=== PATIENT | female | born 1970 | race Caucasian/White ===

== ENCOUNTER 2016-11-03 15:11 | Emergency (ER) | payer OTHER ==
--- NOTE | 2016-11-03 16:28 | ER NURSING DOCUMENTATION ---
Nurse's Notes [facility] Name:Ciarra Gresham Age:46 yrs Sex:Female :1970 Arrival Date:11/03/2016 Time:15:11 Bed1 Private MD:Soledad Fatima Diagnosis:Viral Illness Presentation: 11/03 15:32 Presenting complaint: Patient states: cold symptoms since Wednesday 11/01. Chest sj congestion, chills, aches in all joints, headache, scalp hurts, dry non-productive cough, denies fever. Taking tylenol without relief. Concerned about flu. Transition of care: Home. 15:32 Method Of Arrival: Private Vehicle 15:32 Acuity: CIERA 3 sj Triage Assessment: 15:41 General: Appears in no apparent distress, Behavior is cooperative, pleasant. Pain: sj Complains of pain in all joints. Cardiovascular: Heart tones S1 S2 present. Respiratory: Breath sounds are clear bilaterally. Historical: - Allergies: PENICILLINS; Morphine; - Home Meds: 1. lisinopril 5 mg oral tab 1 tab once daily 2. atorvastatin oral 3. Glyburide Oral 4. Estradiol Oral 5. multivitamin oral 6. Fish Oil oral 7. Acetaminophen Oral - PMHx: Diabetes - NIDDM; hypercholesterolemia; bilateral Wilm's tumor as an infant; right nephrectomy; partial left nephrectomy; bowel surgery for adhesion removal; - PSHx: Hysterectomy; ; - Tetanus: < 10 years. - Ebola Screening: : Patient negative for fever greater than or equal to 101.5 degrees Fahrenheit, and additional compatible Ebola Virus Disease symptoms. Patient denies exposure to infectious person. Patient denies travel to an Ebola-affected area in the 21 days before illness onset. No symptoms or risks identified at this time. . - Immunization history: Pneumococcal vaccine is not up to date, Flu Vaccine < 1 year. - Social history: Smoking status: Patient states was never smoker of tobacco. Patient uses alcohol occasionally. Patient/guardian denies using marijuana. Screenin:44 Infectious Disease Risk None. Abuse screen: Denies threats or abuse. Denies injuries sj from another. Nutritional screening: No deficits noted. Vital Signs: 15:43 BP 106 / 70; Pulse 114; Resp 16; Temp 99.2(O); Pulse Ox 94% on R/A; Weight 61.23 kg; sj Height 5 ft. 2 in. (157.48 cm); Pain 5/10; 16:26 BP 101 / 71; Pulse 105; Resp 20; Pulse Ox 93% on R/A; sj 15:43 Body Mass Index 24.69 (61.23 kg, 157.48 cm) ED Course: 15:12 Patient arrived in ED. arc 15:13 Soledad Fatima MD is Private Physician. arc 15:22 Dave Trinidad MD is Attending Physician. ashok 15:29 Arminda Acosta is Primary Nurse. sj 15:34 Triage completed. sj 15:44 Notified ED Physician of patient's arrival and chief complaint. Dr. Trinidad notified. sj 15:44 Valuables Remains with patient Patient has correct armband on for positive sj identification. Bed in low position. Call light in reach. Side rails up X 1. 16:00 Soledad Fatima MD is Referral Physician. ashok Administered Medications: No medications were administered Outcome: 16:01 Discharge ordered by . 16:26 Discharged to home ambulatory, with family. 16:26 Condition: stable 16:26 Instructed on discharge instructions, follow up and referral plans. Demonstrated understanding of instructions, medications, Prescriptions given X 1. 16:27 Patient left the ED. Signatures: Dave Trinidad MD MD jm Chew, Amelia, [facility] Arminda Acosta
--- NOTE | 2016-11-03 16:28 | ER PHYSICIAN DOCUMENTATION ---
Physician Documentation [facility] Name:Ciarra Gresham Age:46 yrs Sex:Female :1970 Arrival Date:11/03/2016 Time:15:11 Bed1 Private MD:Soledad Fatima ED, John Disposition: 11/03/16 16:01 Discharged to Home/Self Care. Impression: Viral Illness. - Condition is Good. - Discharge Instructions: VIRAL SYNDROME (Adult). - Prescriptions for Tamiflu 75 mg Oral Capsule - take 1 capsule by ORAL route every 12 hours for 5 days; 10 capsule. - Medical Reconciliation form form. - Follow up: Soledad Fatima MD; When: As needed; Reason: Continuance of care. - Problem is new. - Symptoms have improved. HPI: 11/03 16:39 This 46 yrs old Female presents to ER via Private Vehicle with complaints of jm Cold Symptoms. 16:39 The patient or guardian reports cough, flu symptoms, arthralgias, low-grade fever, jm myalgias. Onset: The symptom(s)/episode began/occurred today. Associated signs and symptoms: Pertinent negatives: chest pain, diarrhea, ear ache, sore throat. Historical: - Allergies: PENICILLINS; Morphine; - Home Meds: 1. lisinopril 5 mg oral tab 1 tab once daily 2. atorvastatin oral 3. Glyburide Oral 4. Estradiol Oral 5. multivitamin oral 6. Fish Oil oral 7. Acetaminophen Oral - PMHx: Diabetes - NIDDM; hypercholesterolemia; bilateral Wilm's tumor as an ; right nephrectomy; partial left nephrectomy; bowel surgery for adhesion removal; - PSHx: Hysterectomy; ; - Tetanus: < 10 years. - Ebola Screening: : Patient negative for fever greater than or equal to 101.5 degrees Fahrenheit, and additional compatible Ebola Virus Disease symptoms. Patient denies exposure to infectious person. Patient denies travel to an Ebola-affected area in the 21 days before illness onset. No symptoms or risks identified at this time. . - Immunization history: Pneumococcal vaccine is not up to date, Flu Vaccine < 1 year. - Social history: Smoking status: Patient states was never smoker of tobacco. Patient uses alcohol occasionally. Patient/guardian denies using marijuana. ROS: 16:39 Constitutional: Positive for chills, fatigue, fever, malaise. jm 16:39 Respiratory: Positive for cough, with no reported sputum. 16:39 Abdomen/GI: Negative for abdominal pain, nausea, vomiting, diarrhea. Exam: 16:39 Constitutional: The patient appears alert, awake, comfortable. jm 16:39 ENT: Posterior pharynx: is normal, Voice: is normal. 16:39 Cardiovascular: Rate: tachycardic, Rhythm: regular. 16:39 Respiratory: Respirations: normal, Breath sounds: are normal. 16:39 Neuro: Mentation: is normal, Memory: is normal. Vital Signs: 15:43 BP 106 / 70; Pulse 114; Resp 16; Temp 99.2(O); Pulse Ox 94% on R/A; Weight 61.23 kg; sj Height 5 ft. 2 in. (157.48 cm); Pain 5/10; 16:26 BP 101 / 71; Pulse 105; Resp 20; Pulse Ox 93% on R/A; sj 15:43 Body Mass Index 24.69 (61.23 kg, 157.48 cm) MDM: 15:22 Patient medically screened. 16:40 Differential Diagnosis: Influenza Upper Respiratory Infection. Data reviewed: vital jm signs, nurses notes, lab test result(s), and as a result, I will discharge patient. Counseling: I had a detailed discussion with the patient and/or guardian regarding: the historical points, exam findings, and any diagnostic results supporting the discharge/admit diagnosis, the need for outpatient follow up, with the patient's primary care provider. 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 . 11/03 15:50 Order name: INFLUENZA A/B; Complete Time: 16:12 EDMS Dispensed Medications: No medications were administered Signatures: Dave Trinidad MD MD jm Janzen, Sarah sj
== END 2016-11-03 16:27 | disposition home or self-care (01) ==
LOC: ER 15:11
DX: B34.9 Viral infection, unspecified (principal); R05 Cough; R50.9 Fever, unspecified; R53.83 Other fatigue; R53.81 Other malaise; M79.1 Myalgia; E11.9 Type 2 diabetes mellitus without complications; Z79.899 Other long term (current) drug therapy
CPT/HCPCS: 87449; 99282